=== PATIENT | male | born 1980 | race Caucasian/White ===

== ENCOUNTER 2021-06-11 14:54 | Outpatient (REF) | payer SELFPAY ==
[2021-06-12 17:03] LABS: Abstinence 1.5 d; Appearance Normal; Container Type 50 mL Conical; Motile/Ejaculate 1.8 x10(6) (>=9.0); Motile/mL 0.9 x10(6) (>=6.0); Motility 43 % (>=40); Sperm/mL 2.1 x10(6) (>=15.0); Study Type Semen
[2021-06-13 11:27] LABS: Acrosom Defect 24.5 %; Head Shape Abnormal 30.5 %; Midpiece Defect 3.5 %; Tail Defect 37.5 %
== END 2021-06-11 14:55 | disposition home or self-care (01) ==
LOC: LBN 14:54
PROVIDERS: Visit Provider Obstetrics & Gynecology Gynecology
DX: N46.8 Other male infertility (principal); N46.11 Organic oligospermia
CPT/HCPCS: 89240; 89310